=== PATIENT | female | born 1985 | race African-American/Black ===

== ENCOUNTER 2017-12-26 10:25 | Day surgery (SDC) | payer BC ==
[2017-12-26] MEDS ORDERED: MARCAINE 0.5% INFILTRATI ONE (12:45)
[2017-12-26] MEDS ORDERED: XYLOCAINE 1% 20 mL INFILTRATI ONE (12:45)
[2017-12-26] MEDS ORDERED: XYLOCAINE 1% 20 mL ONE (13:17)
[2017-12-26] MEDS ORDERED: MARCAINE 0.5% 30 ML INFILTRATI ONE (13:17)
[2017-12-26 14:51] VITALS: BP 105/58
--- NOTE | 2017-12-26 17:59 | Operative Report ---
PREOPERATIVE DIAGNOSIS: Mass upper medial thigh on the left side. This measured about 1 x 1.5 cm. It looks a lipoma to me with an elevation of the skin in that area. PROCEDURE: Removal of mass as mentioned above. Local anesthesia used for that purpose 10 mL of 1% Xylocaine and 0.25% Marcaine half and half. FINDINGS: As above. The patient had an epithelial mass that measured about 5 x 5 mm deep to it. There is another mass that is connected to it. DESCRIPTION OF PROCEDURE: With the patient in supine position, prepped and draped in usual fashion. I made a spindle-shaped incision as mentioned above under local anesthesia. I was able to go around it for a good 2 x 0.5 cm. Then, the whole tissue was removed including subcutaneous tissue and then the wound was closed with interrupted stitches of 3-0 Vicryl interruptedly and the Steri-Strips and the bandage. The patient was then discharged home to be seen in my office in 1 week or 10 days. I told her to take extra-strength Tylenol for pain. To call me if she has any problem otherwise. JOB# [id number] CLAUDE/HATTIE
== END 2017-12-26 10:26 | disposition home or self-care (01) ==
LOC: OR 10:25
PROVIDERS: ATTEND Surgery
DX: D17.24 Benign lipomatous neoplasm of skin and subcutaneous tissue of left leg (principal)
CPT/HCPCS: 88304; 88307